=== PATIENT | female | born 1980 | race Native Hawaiian/Other Pacific Islander ===

== ENCOUNTER 2023-07-16 11:34 | Emergency (ER) | payer OTHER, SELFPAY ==
[2023-07-16 11:40] VITALS: BP 122/77; BP 142/92; PULSE 71; PULSE 82; RESP 18; TEMP 36.6; O2SAT 98; BMI 25.6
--- NOTE | 2023-07-16 11:51 | PC.NURSE ---
pt reports that she was previously on 40mg paxil PO daily
[2023-07-16 12:13] LABS: MANUAL DIFF FLAG NO
--- NOTE | 2023-07-16 12:14 | ED_ITS ---
HPI - Psych General Chief Complaint: Psychiatric Symptoms Stated Complaint: DERESSION,SI NO PLAN PER EMS Time Seen by Provider: 07/16/23 12:11 Source: patient Mode of arrival: ambulatory Limitations: no limitations History of Present Illness HPI Narrative: 43 year old female presents to the ER with SI with a plan to overdose on pills. Patient has increasing depression over the last two weeks. She lost her health insurance and stopped taking her antidepressants. She lost her insurance 2 weeks ago she denies any new stressors fevers she is asking for something for anxiety on arrival MD complaint: suicidal ideation and feels depressed Related Data Previous Rx's ?Medication ?Instructions ?Recorded paroxetine HCl 40 mg tablet (Paxil) 40 mg PO DAILY #90 tabs 07/16/23 Allergies Allergy/AdvReac Type Severity Reaction Status Date / Time Penicillins Allergy Unknown Verified 07/16/23 11:44 Review of Systems 2 Review of Systems: Review of systems: General: Patient denies any fever chills recent illness or falls Musculoskeletal: Denies back pain or body aches or other injuries HEENT: denies headache, runny nose, ear pain Respiratory: denies shortness of breath, cough Cardiovascular: no chest pain or palpitations : denies dysuria, frequency Abdomen: no nausea vomiting denies abdominal pain Extremities: no swelling, no pain Skin: no diaphoresis Yes all other systems are reviewed and are negative [facility] Past Medical History Medical History (Updated 07/16/23 @ 15:15 by Joe Darden DO) Severe episode of recurrent major depressive disorder, without psychotic features Surgical History (Updated 07/16/23 @ 11:50 by Linda Pak) Hx of bilateral oophorectomy History of hysterectomy Social History Social History Smoked in Last 30 Days: No Use of substances other than those prescribed or required for medical reasons: No Advance Directives: No Advance Directives Information Provided: No Do you have a plan to hurt others: No Plan Patient : No Physical Exam 2 Vital Signs: Vital Signs: Last Vital Signs Temp 97.9 F 07/16/23 11:40 Pulse 71 07/16/23 11:40 Resp 18 07/16/23 11:40 BP 122/77 07/16/23 11:40 Pulse Ox 98 07/16/23 11:40 O2 Del Method Room Air 07/16/23 11:40 BMI result Body Mass Index 25.6 General: Well-appearing well-nourished in no signs of distress patient is tapping her foot constantly HEENT: Normocephalic atraumatic Neck: No signs of JVD, no masses no tenderness or lymphadenopathy Cardiovascular: Regular rate and rhythm Respiratory: Clear to auscultation bilaterally Abdomen: Soft nontender no masses Extremities: Normal pedal pulses no signs of edema Skin: Dry warm no rashes Back: No tenderness full ROM Course Reevaluation(s) Reevaluation #1: Patient was seen by the crisis team patient states she was seeing a new primary care doctor got upset said that she may hurt herself and was sent in here for evaluation she denies SI states she has some baseline anxiety and feels comfortable going home just wants a script for her Paxil which I will send to the pharmacy. Medications Administered Discontinued Medications Generic Name Dose Route Start Last Admin Trade Name Freq PRN Reason Stop Dose Admin Droperidol 1.25 mg 07/16/23 12:44 07/16/23 13:12 Droperidol 5 Mg/2 Ml Vial IM 07/16/23 12:45 1.25 mg ONCE ONE Administration Hydroxyzine HCl 25 mg 07/16/23 12:44 07/16/23 13:12 Hydroxyzine Hcl 25 Mg Tablet PO 07/16/23 12:45 25 mg ONCE ONE Administration Medical Decision Making Medical Decision Making [facility] Narrative: I will hold the patient here the patient seen by crisis check labs to get the patient medically cleared Differential Diagnosis Differential Diagnoses: The differential diagnosis associated with the presentation includes Depression suicide ideation medication noncompliance Admission/Observation Consideration of admission/observation: Escalation of care including admission/observation considered Consult Healthcare Provider Management of the patient was discussed with: Behavioral Health Provider Lab Data [facility] Lab Attestation statement: I reviewed the patient's lab results. 07/16/23 12:07 07/16/23 12:07 Labs: Lab Results 07/16/23 Range/Units 12:07 WBC 8.0 (4.8-10.8) X10*3/uL RBC 4.57 (4.20-5.50) X10*6/uL Hgb 13.7 (12.0-16.0) g/dl Hct 40.7 (37.0-47.0) % MCV 89.1 (80.0-98.0) fL MCH 30.0 (27.0-33.0) pg MCHC 33.7 (31.0-35.0) g/dl RDW 13.0 (11.0-16.0) % Plt Count 169 (160-400) X10*3/uL MPV 11.4 (9.4-12.3) fL Immature Gran % (Auto) 0.3 (0.0-0.4) % Neut % (Auto) 64.7 (45-73) % Lymph % (Auto) 26.8 (20-40) % [place] % (Auto) 5.7 (2-11) % Eos % (Auto) 2.1 (0-4) % Baso % (Auto) 0.4 (0-2) % Lymph # (Auto) 2.1 (1.2-4.9) X10*3/uL [place] # (Auto) 0.5 (0.1-1.2) X10*3/uL Eos # (Auto) 0.2 (0.0-0.4) X10*3/uL Baso # (Auto) 0.0 (0.0-0.2) X10*3/uL Abs Immat Gran (auto) 0.02 (0.00-0.03) X10*3/uL Absolute Neuts (auto) 5.2 (2.0-8.3) x10*3/uL Absolute Nucleated RBC 0.000 (0.0-0.012) X10*3/uL Nucleated RBC % (auto) 0.0 (0.0-0.2) /100WBC Sodium 141 (135-145) mmol/L Potassium 4.1 (3.3-5.1) mmol/L Chloride 106 (96-108) mmol/L Carbon Dioxide 25 (22-29) mmol/L Anion Gap 14 (12-20) BUN 13 (9-16) mg/dL Creatinine 0.72 (0.5-1.4) mg/dL Estim Creat Clear Calc 79.5 Estimated GFR > 60 Random Glucose 95 (60-115) mg/dL Calcium 9.4 (8.4-10.2) mg/dL Total Bilirubin 0.4 (0.0-1.0) mg/dL AST 20 (5-31) U/L ALT 22 (0-31) U/L Alkaline Phosphatase 74 (39-117) U/L Total Protein 7.3 (6.5-8.0) g/dL Albumin 4.4 (3.5-5.0) g/dL Urine Color Yellow Urine Appearance Clear Urine pH 7.0 (5.0-9.0) Ur Specific [place] 1.020 (1.005-1.025) Urine Protein Negative (Neg-Trace) mg/dL Urine Glucose (UA) Negative (Negative) mg/dL Urine Ketones Negative (Negative) mg/dL Urine Blood Small (1+) H (Negative) Urine Nitrite Negative (Negative) Ur Leukocyte Esterase Moderate (2+) H (Negative) Urine RBC 3-5 H (0-2) /HPF Urine WBC 6-10 (0-5) /HPF Ur Squamous Epith Cells 3-5 (0-2) /HPF Urine Bacteria Trace (None Seen) Hyaline Casts 0-2 (0-2) /LPF Urine Opiates Screen Not Detected (Not Detect) Ur Buprenorphine Scrn Not Detected (Not Detect) ng/mL Ur Oxycodone Screen Not Detected (Not Detect) ng/mL Urine Methadone Screen Not Detected (Not Detect) ng/mL Urine Fentanyl Screen Not Detected (Not Detect) Ur Barbiturates Screen Not Detected (Not Detect) Ur Phencyclidine Scrn Not Detected (Not Detect) Ur Amphetamines Screen Not Detected (Not Detect) U Benzodiazepines Scrn Not Detected (Not Detect) Urine Cocaine Screen Not Detected (Not Detect) U Marijuana (THC) Screen Not Detected (Not Detect) Independent Historian Clinical information obtained from an independent historian. History obtained from or confirmed by: Friend External Record Review Patient has never been here before there is no previous records to review Social Determinants Patient?s care significantly limited by Social Determinants of Health including: Inadequate housing, Low income, Problems related to primary support group, Unemployment and Problems related to employment Discharge Plan Discharge Clinical Impression: Depression, Suicidal ideation Patient Disposition: Home, Self-Care Instructions: Depression (DC), Suicide Prevention (ED) Additional Instructions: You were seen in the emergency department after not being on medications for a short period of time. You also seen for depression. Your labs done and was sent home with a strep for Paxil. If you have any other concerns please do not hesitate to return to the emergency department. Prescriptions: New paroxetine HCl [Paxil] 40 mg tablet 40 mg PO DAILY Qty: 90 0RF Interventions: [place]-Suicide Risk Severity Scale Last Done: 07/16/23 11:53 Print Language: Slovak
[2023-07-16 12:17] LABS: Basophils Percent Auto 0.4 % (0-2); Eosinophils Absolute Auto 0.2 X10*3/uL (0.0-0.4); Eosinophils Percent Auto 2.1 % (0-4); Hematocrit 40.7 % (37.0-47.0); Hemoglobin 13.7 g/dl (12.0-16.0); Imm Gran Abs Auto 0.02 X10*3/uL (0.00-0.03); Imm Gran Pct Auto 0.3 % (0.0-0.4); Lymphocytes Absolute Auto 2.1 X10*3/uL (1.2-4.9); Lymphocytes Percent Auto 26.8 % (20-40); Mean Corpuscular HGB Conc 33.7 g/dl (31.0-35.0); Mean Corpuscular Volume 89.1 fL (80.0-98.0); Mean Platelet Volume 11.4 fL (9.4-12.3); Monocytes Absolute Auto 0.5 X10*3/uL (0.1-1.2); Monocytes Percent Auto 5.7 % (2-11); Neutrophils Absolute Auto 5.2 x10*3/uL (2.0-8.3); Neutrophils Percent Auto 64.7 % (45-73); Platelet Count 169 X10*3/uL (160-400); Red Blood Count 4.57 X10*6/uL (4.20-5.50)
[2023-07-16 12:20] LABS: Appearance Urine Clear; Color Urine Yellow; Glucose Urine UA Negative (Negative); Leukocyte Esterase Urine Moderate (2+) (Negative); Nitrite Urine Negative (Negative); UMIC TRIGGER UACC YES; Urine Blood Small (1+) (Negative); Urine Ketones Negative (Negative); Urine Protein Negative (Neg-Trace)
[2023-07-16 12:25] LABS: Amphetamine Screen Urine Not Detected (Not Detect); Barbiturates, Urine Not Detected (Not Detect); Benzodiazepines Screen Urine Not Detected (Not Detect); Buprenorphine Scr Not Detected (Not Detect); Cannabinoid Screen Urine Not Detected (Not Detect); Cocaine Screen Urine Not Detected (Not Detect); Fentanyl, urine Not Detected (Not Detect); Methadone Screen, Urine Not Detected (Not Detect); Opiate Screen Urine Not Detected (Not Detect); Oxycodone Screen Urine Not Detected (Not Detect); Phencyclidine Screen Urine Not Detected (Not Detect)
[2023-07-16 12:29] LABS: Bacteria Urine Trace (None Seen); Hyaline Casts Urine 0-2 /LPF (0-2); UACC Culture Trigger YES
[2023-07-16 12:30] LABS: Alanine Aminotransferase 22 U/L (0-31); Albumin Level 4.4 g/dL (3.5-5.0); Alkaline Phosphatase 74 U/L (39-117); Anion Gap 14 (12-20); Aspartate Amino Transferase 20 U/L (5-31); Bilirubin Total 0.4 mg/dL (0.0-1.0); Blood Urea Nitrogen 13 mg/dL (9-16); Calcium 9.4 mg/dL (8.4-10.2); Carbon Dioxide 25 mmol/L (22-29); Chloride 106 mmol/L (96-108); Creatinine Clr Calc Pharmacy 79.5; Estimated Glomerular Filt Rate > 60; Glucose Random 95 mg/dL (60-115); Potassium 4.1 mmol/L (3.3-5.1); Sodium 141 mmol/L (135-145); Total Protein 7.3 g/dL (6.5-8.0)
--- NOTE | 2023-07-16 12:51 | PC.NURSE ---
report given to Boy HILL, pt to be moved to [facility] for further eval and tx
[2023-07-16] MEDS: hydrOXYzine HCL 25 MG TABLET PO (13:12)
[2023-07-16] MEDS: droPERidol 5 MG/2 ML VIAL 1.25 MG IM (13:12)
--- NOTE | 2023-07-16 14:38 | PC.NURSE ---
Assumed care of patient at 1300. Patient arrived to Bed 4 in hospital attire. Visible anxious and endorsing anxiety. MD with medication orders. Medications taking willingly by patient. Will continue plan of care.
--- NOTE | 2023-07-16 15:21 | MHC.CARE ---
Patient evaluated by the CARE Team, at this time she does not require an inpatient psychiatric admission. Her symptoms can be managed through outpatient providers. ED provider, Dr. Darden in agreement with plan to discharge.
[2023-07-16 15:25] VITALS: BP 122/77; PULSE 71; RESP 18; TEMP 36.6; O2SAT 98
--- NOTE | 2023-07-17 10:53 | MHC.CARE ---
RAD Team completed referrals to [facility] for outpatient services & [facility] for a 3 day follow up. Sharon [facility] confirmed receipt of the referral and will follow up for the next 3 days. [facility] is now processing the referral to assign the pt's case to a clinician.
== END 2023-07-16 15:30 | disposition home or self-care (01) ==
PROVIDERS: Emergency Provider Student in an Organized Health Care Education/Training Program
DX: F32.A Depression, unspecified (principal); R45.851 Suicidal ideations; F41.9 Anxiety disorder, unspecified; Z91.148 Patient's other noncompliance with medication regimen for other reason
CPT/HCPCS: 36415; 80053; 80307; 81001; 85025; 87086; 96372; 99284; J1790; S9485